=== PATIENT | female | born 1990 | race Caucasian/White ===

== ENCOUNTER 2019-01-04 10:20 | Emergency (ER) | payer MEDICAID ==
[~2019-01-04] VITALS: Ht 165.1 cm; Wt 68.2 kg
[2019-01-04] MEDS ORDERED: ADV100 IH (10:35)
[2019-01-04] MEDS ORDERED: ALBU8.5H8 IH (10:35)
[2019-01-04] MEDS ORDERED: IPRATROPIUM BROMIDE 0.5 MG/2.5 ML NEB SOLUTION NEB ONE ×2 (10:52→11:00)
[2019-01-04] MEDS ORDERED: ALBUTEROL SULFATE 2.5 MG/0.5 ML NEB SOLUTION NEB ONE ×2 (10:52→11:00)
[2019-01-04] MEDS ORDERED: DEXAMETHASONE 4 MG TABLET PO ONE (11:00)
[2019-01-04] MEDS ORDERED: ALBUTEROL SULFATE HFA 90 MCG/PUFF 8 GM INHALER IH ONE (11:00)
[2019-01-04 11:45] VITALS: BP 111/79
== END 2019-01-04 11:40 | disposition left against medical advice (07) ==
LOC: EMS 10:25
DX: J45.909 Unspecified asthma, uncomplicated (principal); F17.210 Nicotine dependence, cigarettes, uncomplicated
CPT/HCPCS: 94640; 99284; 99406; J8540; J3535

== ENCOUNTER 2019-02-18 10:25 | Emergency (ER) | payer MEDICAID ==
[~2019-02-18] VITALS: Ht 165.1 cm; Wt 63.6 kg
[~2019-02-18 10:25] MED LIST: ADV100 IH; ALBU8.5H8 IH
[2019-02-18] MEDS ORDERED: ALBUTEROL SULFATE 2.5 MG/0.5 ML NEB SOLUTION NEB ONE (11:30)
[2019-02-18] MEDS ORDERED: IPRATROPIUM BROMIDE 0.5 MG/2.5 ML NEB SOLUTION NEB ONE (11:30)
[2019-02-18] MEDS ORDERED: PredniSONE 20 MG TABLET PO ONE (11:45)
[2019-02-18 12:40] VITALS: BP 119/72
== END 2019-02-18 12:59 | disposition home or self-care (01) ==
LOC: EMS 10:27
DX: J45.901 Unspecified asthma with (acute) exacerbation (principal); F17.210 Nicotine dependence, cigarettes, uncomplicated
CPT/HCPCS: 94640; 99283; 99406; J7512

== ENCOUNTER 2020-03-28 22:37 | Emergency (ER) | payer MEDICAID ==
[~2020-03-28] VITALS: Ht 165.1 cm; Wt 88.6 kg
[~2020-03-28 22:37] MED LIST changes: -ADV100 IH; +FLUT1DIS4 IH
[2020-03-28 22:42] VITALS: BP 123/79
== END 2020-03-29 | disposition left against medical advice (07) ==
LOC: EMS 22:40
DX: R22.0 Localized swelling, mass and lump, head (principal); Z53.21 Procedure and treatment not carried out due to patient leaving prior to being seen by health care provider

== ENCOUNTER 2022-01-09 22:53 | Emergency (ER) | payer MEDICAID, OTHER ==
[~2022-01-09] VITALS: Ht 175.3 cm; Wt 109.1 kg
[2022-01-10 03:02] VITALS: BP 137/82
[2022-01-10] MEDS ORDERED: KETOROLAC TROMETHAMINE 30 MG/ML VIAL IM ONE (04:45)
[2022-01-10] MEDS ORDERED: AMOXICILLIN TRIHYDRATE 250 MG CAPSULE PO ONE (04:45)
[2022-01-10] MEDS ORDERED: AMOX250C4 PO (05:21)
[2022-01-10] MEDS ORDERED: TRAM50TA2 PO (05:22)
== END 2022-01-10 05:28 | disposition home or self-care (01) ==
LOC: EMS 23:22
DX: K02.9 Dental caries, unspecified (principal); J45.909 Unspecified asthma, uncomplicated; F17.210 Nicotine dependence, cigarettes, uncomplicated
CPT/HCPCS: 99283; 96372; J1885

== ENCOUNTER 2022-08-19 07:31 | Inpatient (IN) | payer OTHER ==
[~2022-08-19] VITALS: Ht 170.2 cm; Wt 79.5 kg
[~2022-08-19 07:31] MED LIST changes: +AMOX250C4 PO; +TRAM50TA2 PO
[2022-08-19] MEDS ORDERED: ALBUTEROL NEB TX IH (07:34)
[2022-08-19] MEDS ORDERED: DEXAMETHASONE SOD PHOS 4 MG/ML 5 ML VIAL IM ONE (08:30)
[2022-08-19] MEDS ORDERED: ALBUTEROL SULFATE 2.5 MG/0.5 ML NEB SOLUTION NEB ONE ×3 (08:30)
[2022-08-19] MEDS ORDERED: IPRATROPIUM BROMIDE 0.5 MG/2.5 ML NEB SOLUTION NEB ONE ×2 (08:30)
[2022-08-19] MEDS ORDERED: 0.9% SODIUM CHLORIDE 5 ML NEB SOLUTION NEB ONE (08:36)
[2022-08-19 09:59] LABS: BASOPHILS % (AUTO) 0.5 % (0.0-2.0); EOSINOPHILS % (AUTO) 0.7 % (1.0-6.0); HEMATOCRIT 39.5 % (36-46); HEMOGLOBIN 13.2 g/dL (12.0-16.0); LYMPHOCYTES # (AUTO) 0.7 K/uL (1.0-4.8); MEAN CORPUSCULAR HEMOGLOBIN 30.8 pg (26.0-34.0); MEAN CORPUSCULAR HGB CONC 33.4 G/dL (31.0-37.0); MEAN CORPUSCULAR VOLUME 92 fL (80-100); MONOCYTES # (AUTO) 0.7 K/uL (0.1-1.0); MONOCYTES % (AUTO) 8.4 % (2.0-9.0); NEUTROPHILS # (AUTO) 6.9 K/uL (1.8-7.7); NEUTROPHILS % (AUTO) 82.4 % (40.0-70.0); PLATELET COUNT (AUTO) 275 K/uL (150-450); RED BLOOD CELL COUNT(AUTO) 4.29 MIL/uL (4.00-5.20); RED CELL DISTRIBUTION WIDTH 13.5 % (11.5-14.5)
[2022-08-19 10:14] LABS: ANION GAP 10 mmol/L (8-16); CALCIUM, TOTAL 8.3 mg/dL (8.8-10.5); CARBON DIOXIDE 23 mmol/L (22-29); CHLORIDE 101 mmol/L (98-107); CREATININE 0.83 mg/dL (0.60-1.30); GLOMERULAR FILTR. RATE CALC > 60 mL/min (>60); GLUCOSE,RANDOM 122 mg/dL (70-110); POTASSIUM 3.9 mmol/L (3.5-5.1); SODIUM SERUM 134 mmol/L (136-145); UREA NITROGEN, BLOOD 8 mg/dL (7-18)
[2022-08-19 10:18] LABS: ALANINE AMINOTRANSFERASE 19 U/L (12-78); ALBUMIN 3.5 g/dL (3.4-5.0); ALKALINE PHOSPHATASE 80 U/L (46-116); ASPARTATE AMINOTRANSFERASE 17 U/L (15-37); BILIRUBIN,TOTAL 0.3 mg/dL (0.1-1.0); TOTAL PROTEIN, SERUM 7.4 g/dL (6.4-8.2)
[2022-08-19] MEDS ORDERED: IPRATROPIUM BROMIDE 0.5 MG/2.5 ML NEB SOLUTION NEB PRN ×2 (10:45→15:45)
[2022-08-19] MEDS ORDERED: ACETAMINOPHEN 325 MG TABLET PO PRN (10:45)
[2022-08-19] MEDS ORDERED: ALBUTEROL SULFATE 2.5 MG/0.5 ML NEB SOLUTION NEB PRN ×2 (10:45→15:45)
[2022-08-19] MEDS ORDERED: ONDANSETRON HCL 4 MG/2 ML VIAL IVP PRN (10:45)
[2022-08-19] MEDS: MONTELUKAST SODIUM 10 MG TABLET PO SCH (11:36)
[2022-08-19] MEDS ORDERED: ALBU18HF12 IH (12:29)
[2022-08-19] MEDS ORDERED: AUD NEB (12:29)
[2022-08-19] MEDS ORDERED: AZITHROMYCIN 500 MG/NS 250 ML IV ONE (12:30)
[2022-08-19] MEDS ORDERED: CefTRIAXone 1 GM/DEXTROSE 50 ML IV ONE (12:30)
[2022-08-19 13:39] LABS: APPEARANCE,URINE CLEAR (CLEAR); BILIRUBIN,URINE NEGATIVE (NEGATIVE); GLUCOSE, URINE (UA) NEGATIVE (NEGATIVE); KETONES,URINE NEGATIVE (NEGATIVE); LEUKOCYTE ESTERASE ,URINE NEGATIVE (NEGATIVE); NITRATE,URINE NEGATIVE (NEGATIVE); OCCULT BLOOD,URINE NEGATIVE (NEGATIVE); PROTEIN,URINE TRACE mg/dL (NEGATIVE); SPECIFIC GRAVITIY, URINE 1.017 (1.003-1.030); UROBILINOGEN,URINE <=1.0 mg/dL (<=1.0)
[2022-08-19] MEDS: HEPARIN SODIUM,PORCINE 5,000 UNITS/ML VIAL SQ SCH ×2 (15:31→23:55)
[2022-08-19] MEDS: FAMOTIDINE 20 MG TABLET PO SCH (20:17)
[2022-08-19] MEDS: DOCUSATE SODIUM 100 MG CAPSULE PO SCH (20:17)
[2022-08-19 20:52] VITALS: BP 122/75
[2022-08-19] MEDS: NICOTINE 14 MG/24 HOUR PATCH TD SCH (22:03)
[2022-08-19] MEDS: MethylPREDNISolone SOD SUCC 125 MG/2 ML VIAL IVP SCH (23:56)
[2022-08-20 00:40] VITALS: BP 127/68
[2022-08-20 05:55] VITALS: BP 115/74
[2022-08-20 07:34] VITALS: BP 125/87
[2022-08-20] MEDS: DOCUSATE SODIUM 100 MG CAPSULE PO SCH (08:30)
[2022-08-20] MEDS: FAMOTIDINE 20 MG TABLET PO SCH (08:30)
[2022-08-20] MEDS: MONTELUKAST SODIUM 10 MG TABLET PO SCH (08:30)
[2022-08-20] MEDS: HEPARIN SODIUM,PORCINE 5,000 UNITS/ML VIAL SQ SCH (08:30)
[2022-08-20] MEDS: NICOTINE 14 MG/24 HOUR PATCH TD SCH (08:31)
[2022-08-20] MEDS: MethylPREDNISolone SOD SUCC 125 MG/2 ML VIAL IVP SCH (08:31)
[2022-08-20] MEDS ORDERED: PRED-554 PO (10:54)
[2022-08-20 12:42] VITALS: BP 116/68
== END 2022-08-20 13:05 | disposition home or self-care (01) | DRG 133 ==
LOC: EMS 07:35 → ICUN 12:32 → 5S 18:46
PROVIDERS: ADMIT Internal Medicine; ATTEND Internal Medicine
DX: J96.01 Acute respiratory failure with hypoxia (principal); J45.901 Unspecified asthma with (acute) exacerbation; F17.210 Nicotine dependence, cigarettes, uncomplicated; Z20.822 Contact with and (suspected) exposure to COVID-19; E66.9 Obesity, unspecified; Z68.27 Body mass index [BMI] 27.0-27.9, adult; Z82.5 Family history of asthma and other chronic lower respiratory diseases; Z72.89 Other problems related to lifestyle
CPT/HCPCS: 71045; 80053; 81003; 84703; 85025; 94640; 99285; G0378; J0456; J0696; J1100; J1644; J2930; 36415-L1; 36415-TC; J7613

== ENCOUNTER 2024-04-19 19:57 | Emergency (ER) | payer OTHER ==
[~2024-04-19] VITALS: Ht 165.1 cm; Wt 90.9 kg
[~2024-04-19 19:57] MED LIST changes: +ALBU18HF12 IH; +ALBU2.5V39 NEB; -ALBU8.5H8 IH; -AMOX250C4 PO; -FLUT1DIS4 IH; +PRED-554 PO; -TRAM50TA2 PO
[2024-04-19 20:20] LABS: COVID AG,FIA SOURCE NASAL SWAB
[2024-04-19 20:43] LABS: INFLUENZA TYPE B NEGATIVE FOR TYPE B (NEGATIVE); SARS-COV2 (COVID) ANTIGEN,FIA Negative (Negative)
[2024-04-19 20:45] LABS: BASOPHILS % (AUTO) 0.4 % (0.0-2.0); EOSINOPHILS % (AUTO) 2.1 % (1.0-6.0); HEMATOCRIT 42.5 % (36-46); HEMOGLOBIN 14.3 g/dL (12.0-16.0); LYMPHOCYTES # (AUTO) 1.3 K/uL (1.0-4.8); MEAN CORPUSCULAR HEMOGLOBIN 30.7 pg (26.0-34.0); MEAN CORPUSCULAR HGB CONC 33.6 G/dL (31.0-37.0); MEAN CORPUSCULAR VOLUME 92 fL (80-100); MONOCYTES # (AUTO) 0.5 K/uL (0.1-1.0); MONOCYTES % (AUTO) 7.9 % (2.0-9.0); NEUTROPHILS # (AUTO) 4.7 K/uL (1.8-7.7); NEUTROPHILS % (AUTO) 69.6 % (40.0-70.0); PLATELET COUNT (AUTO) 292 K/uL (150-450); RED BLOOD CELL COUNT(AUTO) 4.64 MIL/uL (4.00-5.20); WHITE BLOOD COUNT (AUTO) 6.7 K/uL (4.5-11.0)
[2024-04-19 20:49] LABS: ANION GAP 9 mmol/L (8-16); CALCIUM, TOTAL 7.9 mg/dL (8.8-10.5); CARBON DIOXIDE 27 mmol/L (22-29); CHLORIDE 101 mmol/L (98-107); CREATININE 0.85 mg/dL (0.60-1.30); GLOMERULAR FILTR. RATE CALC > 60 mL/min (>60); GLUCOSE,RANDOM 109 mg/dL (70-110); POTASSIUM 3.8 mmol/L (3.5-5.1); SODIUM SERUM 137 mmol/L (136-145); UREA NITROGEN, BLOOD 11 mg/dL (7-18)
[2024-04-19 21:16] LABS: INFLUENZA TYPE A POSITIVE FOR TYPE A (NEGATIVE)
[2024-04-19 21:28] VITALS: TEMP 99.8
[2024-04-19] MEDS: IPRATROPIUM BROMIDE 0.5 MG/2.5 ML NEB SOLUTION NEB ONE (22:37)
[2024-04-19] MEDS: ALBUTEROL SULFATE 2.5 MG/0.5 ML NEB SOLUTION NEB ONE (22:37)
[2024-04-19 22:40] VITALS: PULSE 106; RESP 18; O2SAT 96
[2024-04-19] MEDS ORDERED: OSEL75CA45 PO (23:15)
[2024-04-19] MEDS ORDERED: PRED-554 PO (23:16)
[2024-04-19 23:21] VITALS: BP 131/88; PULSE 105; RESP 24; O2SAT 95
== END 2024-04-19 23:37 | disposition home or self-care (01) ==
LOC: EMS 19:57
DX: J11.1 Influenza due to unidentified influenza virus with other respiratory manifestations (principal); J45.901 Unspecified asthma with (acute) exacerbation; F17.210 Nicotine dependence, cigarettes, uncomplicated; Z20.822 Contact with and (suspected) exposure to COVID-19
CPT/HCPCS: 71045; 80048; 85025; 87804; 94640; 99284; 36415-L1; 36415-TC; J7613

== ENCOUNTER 2024-05-26 11:40 | Emergency (ER) | payer OTHER ==
[~2024-05-26] VITALS: Ht 165.1 cm; Wt 90.9 kg
[~2024-05-26 11:40] MED LIST changes: +OSEL75CA45 PO
[2024-05-26 11:58] VITALS: TEMP 98.2
[2024-05-26 15:05] LABS: BASOPHILS % (AUTO) 0.6 % (0.0-2.0); EOSINOPHILS % (AUTO) 3.6 % (1.0-6.0); HEMATOCRIT 42.8 % (36-46); HEMOGLOBIN 14.2 g/dL (12.0-16.0); LYMPHOCYTES # (AUTO) 3.5 K/uL (1.0-4.8); LYMPHOCYTES % (AUTO) 31.3 % (22.0-44.0); MEAN CORPUSCULAR HEMOGLOBIN 30.2 pg (26.0-34.0); MEAN CORPUSCULAR HGB CONC 33.2 G/dL (31.0-37.0); MEAN CORPUSCULAR VOLUME 91 fL (80-100); MONOCYTES # (AUTO) 0.6 K/uL (0.1-1.0); MONOCYTES % (AUTO) 5.5 % (2.0-9.0); NEUTROPHILS # (AUTO) 6.6 K/uL (1.8-7.7); PLATELET COUNT (AUTO) 450 K/uL (150-450); RED BLOOD CELL COUNT(AUTO) 4.69 MIL/uL (4.00-5.20); RED CELL DISTRIBUTION WIDTH 13.3 % (11.5-14.5); WHITE BLOOD COUNT (AUTO) 11.1 K/uL (4.5-11.0)
[2024-05-26 15:25] LABS: ANION GAP 6 mmol/L (8-16); CALCIUM, TOTAL 8.8 mg/dL (8.8-10.5); CARBON DIOXIDE 29 mmol/L (22-29); CHLORIDE 102 mmol/L (98-107); CREATININE 0.77 mg/dL (0.60-1.30); GLOMERULAR FILTR. RATE CALC > 60 mL/min (>60); GLUCOSE,RANDOM 90 mg/dL (70-110); POTASSIUM 4.3 mmol/L (3.5-5.1); SODIUM SERUM 137 mmol/L (136-145); UREA NITROGEN, BLOOD 9 mg/dL (7-18)
[2024-05-26 15:38] VITALS: BP 120/78; PULSE 74; RESP 18; O2SAT 99
[2024-05-26] MEDS: TraMADol HCL 50 MG TABLET PO ONE (16:18)
[2024-05-26] MEDS ORDERED: CYCL-448 PO (16:51)
== END 2024-05-26 17:00 | disposition home or self-care (01) ==
LOC: EMS 11:40
DX: S16.1XXA Strain of muscle, fascia and tendon at neck level, initial encounter (principal); S59.802A Other specified injuries of left elbow, initial encounter; M25.552 Pain in left hip; M54.50 Low back pain, unspecified; M79.641 Pain in right hand; J45.909 Unspecified asthma, uncomplicated; F17.210 Nicotine dependence, cigarettes, uncomplicated; Z79.52 Long term (current) use of systemic steroids; V43.52XA Car driver injured in collision with other type car in traffic accident, initial encounter; Y93.89 Activity, other specified; Y92.410 Unspecified street and highway as the place of occurrence of the external cause; Y99.8 Other external cause status
CPT/HCPCS: 72125; 72131; 73503; 80048; 84703; 85025; 99284